=== PATIENT | female | born 1940 | race Caucasian/White ===

== ENCOUNTER 2016-05-14 10:45 | Day surgery (SDC) | payer MEDICARE, OTHER ==
[~2016-05-14 10:45] MED LIST: Cefuroxime 10 MG/ML SYRINGE EYERT SCH; Pilocarpine 4% Ophth Soln 15 ML Bot EYERT SCH; Proparacaine 0.5% Ophth Soln 15 ML Bottle EYEBOTH SCH; Tetracaine 0.5% 2 ML Bottle EYERT SCH
[2016-05-14] MEDS: Polymyxin B/Trimethoprim 10 ML Bottle EYERT SCH ×3 (12:30→14:12)
[2016-05-14] MEDS: Apraclonidine 0.5% Ophth Soln 5 ML Bot EYERT SCH ×3 (12:36→14:12)
[2016-05-14] MEDS: Phenylephrine 2.5% Ophth Soln 2 ML Bot EYERT SCH ×5 (12:40→13:55)
--- NOTE | 2016-05-14 13:06 | PCM.PREANE ---
Preanesthetic Assessment - Anesthesia/Transfusion/Family Hx Anesthesia History: Prior Anesthesia Without Reaction Family History of Anesthesia Reaction: Yes Transfusion History: Prior Transfusion Without Reaction - Review of Systems General: No Symptoms Pulmonary: No Symptoms Cardiovascular: No Symptoms Gastrointestinal: No symptoms Neurological: No Symptoms Other: Reports: None - Physical Assessment NPO Status Date: 05/13/16 NPO Status Time: 17:00 O2 Sat by Pulse Oximetry: 98 Respiratory Rate: 16 Vital Signs: Last Vital Signs Temp 36.3 C 05/14/16 12:20 Pulse 68 05/14/16 12:20 Resp 16 05/14/16 12:20 BP 176/78 H 05/14/16 12:20 Pulse Ox 98 05/14/16 12:20 Height: 1.68 m Weight: 72.575 kg ASA Class: 2 Mental Status: Alert & Oriented x3 Dentition: Reports: [place](s) (permanent ) Thyro-Mental Finger Breadths: 3 Mouth Opening Finger Breadths: 5 ROM/Head Extension: Full Lungs: Clear to auscultation, Normal respiratory effort Cardiovascular: Regular Rate, Regular Rhythm - Allergies Allergies/Adverse Reactions: Allergies Allergy/AdvReac Type Severity Reaction Status Date / Time No Known Allergies Allergy Verified 05/13/16 07:12 - Anesthesia Plan Pre-Op Medication Ordered: None - Acknowledgements Anesthesia Type Planned: MAC Pt an Appropriate Candidate for the Planned Anesthesia: Yes Alternatives and Risks of Anesthesia Discussed w Pt/Guardian: Yes Pt/Guardian Understands and Agrees with Anesthesia Plan: Yes PreAnesthesia Questionnaire - Past Health History Medical/Surgical History: Denies Medical/Surgical History Cardiovascular History: Reports: None Respiratory History: Reports: None Endocrine/Metabolic History: Reports: None - Infectious Disease History Infectious Disease History: Reports: None - SUBSTANCE USE Smoking Status *Q: Current Every Day Smoker - HOME MEDS Home Medications: Home Meds Pravastatin [Pravachol] 40 mg PO DAILY 05/13/16 [History] - CURRENT (IN HOUSE) MEDS Current Meds: Current Medications Apraclonidine HCl (Iopidine 0.5% Ophth Soln) 0 ml EYERT ASDIRECTED CARLA Stop: 05/14/16 18:00 Last Admin: 05/14/16 12:36 Dose: 1 drop Cefuroxime Sodium (Zinacef) 0 mg EYERT ASDIRECTED CARLA Stop: 05/14/16 18:00 Phenylephrine HCl (Bony-Synephrine 2.5% Ophth Soln) 0 ml EYERT ASDIRECTED CARLA Stop: 05/14/16 18:00 Last Admin: 05/14/16 12:50 Dose: 1 drop Pilocarpine HCl (Pilocar 4% Ophth Soln) 0 ml EYERT ASDIRECTED CARLA Stop: 05/14/16 18:00 Polymyxin/Trimethoprim Sulfate (Polytrim Ophth Soln) 0 ml EYERT ASDIRECTED CARLA Stop: 05/14/16 18:00 Last Admin: 05/14/16 12:30 Dose: 1 drop Proparacaine HCl (Proparacaine 0.5% Ophth Soln) 0 ml EYEBOTH ASDIRECTED CARLA Stop: 05/14/16 18:00 Tetracaine (Pontocaine 0.5% Ophth Drops) 0 ml EYERT ASDIRECTED CARLA Stop: 05/14/16 18:00 Tropicamide (Mydriacyl 1% Ophth Soln) 0 ml EYERT ASDIRECTED CARLA Stop: 05/14/16 18:00 Last Admin: 05/14/16 12:55 Dose: 1 drop Preanesthetic Assessment - PHYSICAL ASSESSMENT O2 Sat by Pulse Oximetry: 98 RR: 16 Vital Signs: Last Vital Signs Temp 36.3 C 05/14/16 12:20 Pulse 68 05/14/16 12:20 Resp 16 05/14/16 12:20 BP 176/78 H 05/14/16 12:20 Pulse Ox 98 05/14/16 12:20 Height: 1.68 m Weight: 72.575 kg NPO Status Date: 05/13/16 NPO Status Time: 17:00 - ALLERGIES Allergies/Adverse Reactions: Allergies Allergy/AdvReac Type Severity Reaction Status Date / Time No Known Allergies Allergy Verified 05/13/16 07:12
--- NOTE | 2016-05-14 14:14 | PCM48HPAN ---
Post Anesthesia Note - EVALUATION WITHIN 48HRS OF ANESTHETIC Vital Signs in Normal Range: Yes Patient Participated in Evaluation: Yes Respiratory Function Stable: Yes Airway Patent: Yes Cardiovascular Function Stable: Yes Hydration Status Stable: Yes Pain Control Satisfactory: Yes Nausea and Vomiting Control Satisfactory: Yes Mental Status Recovered: Yes
[2016-05-14] MEDS ORDERED: Lidocaine 1% PF 2 ML SDV INJECT SCH (14:45)
[2016-05-14 14:50] VITALS: BP 168/85
== END 2016-05-14 14:30 | disposition home or self-care (01) ==
LOC: JD.SDS 10:45
PROVIDERS: ATTEND Ophthalmology
DX: H26.9 Unspecified cataract (principal); E78.00 Pure hypercholesterolemia, unspecified; Z90.710 Acquired absence of both cervix and uterus; Z98.890 Other specified postprocedural states
CPT/HCPCS: 66984; A9270; C1780; J0697

== ENCOUNTER 2016-06-11 09:16 | Day surgery (SDC) | payer MEDICARE, OTHER ==
[2016-06-11] MEDS: Polymyxin B/Trimethoprim 10 ML Bottle EYELF SCH ×4 (10:33→12:03)
[2016-06-11] MEDS: Brimonidine 0.2% Ophth Soln 5 ML Bottle EYELF SCH ×4 (10:39→12:03)
[2016-06-11] MEDS: Phenylephrine 2.5% Ophth Soln 2 ML Bot EYELF SCH ×6 (10:43→11:47)
--- NOTE | 2016-06-11 11:04 | PCM.PREANE ---
Preanesthetic Assessment - Anesthesia/Transfusion/Family Hx Anesthesia History: Prior Anesthesia Without Reaction Family History of Anesthesia Reaction: No Transfusion History: Prior Transfusion Without Reaction - Review of Systems General: No Symptoms Pulmonary: No Symptoms Cardiovascular: No Symptoms Gastrointestinal: No symptoms Neurological: No Symptoms Other: Reports: None - Physical Assessment NPO Status Date: 06/10/16 NPO Status Time: 17:30 O2 Sat by Pulse Oximetry: 98 Respiratory Rate: 16 Vital Signs: Last Vital Signs Temp 36.4 C 06/11/16 10:20 Pulse 91 06/11/16 10:20 Resp 16 06/11/16 10:20 BP 182/98 H 06/11/16 10:20 Pulse Ox 98 06/11/16 10:20 Height: 1.68 m Weight: 72.575 kg ASA Class: 2 Mental Status: Alert & Oriented x3 Airway Class: Mallampati = 1 Dentition: Reports: Normal Dentition Thyro-Mental Finger Breadths: 3 Mouth Opening Finger Breadths: 3 ROM/Head Extension: Full Lungs: Clear to auscultation, Normal respiratory effort Cardiovascular: Regular Rate, Regular Rhythm - Allergies Allergies/Adverse Reactions: Allergies Allergy/AdvReac Type Severity Reaction Status Date / Time Influenza Virus Vaccines Allergy Itching Verified 06/10/16 13:30 - Acknowledgements Anesthesia Type Planned: MAC Pt an Appropriate Candidate for the Planned Anesthesia: Yes Alternatives and Risks of Anesthesia Discussed w Pt/Guardian: Yes Pt/Guardian Understands and Agrees with Anesthesia Plan: Yes PreAnesthesia Questionnaire - Past Health History Medical/Surgical History: Denies Medical/Surgical History HEENT History: Reports: None Cardiovascular History: Reports: None, High cholesterol Respiratory History: Reports: None Gastrointestinal History: Reports: None, GERD Genitourinary History: Reports: None Musculoskeletal History: Reports: None Neurological History: Reports: None Psychiatric History: Reports: None Endocrine/Metabolic History: Reports: None Hematologic History: Reports: None Immunologic History: Reports: None Oncologic (Cancer) History: Reports: None Dermatologic History: Reports: None - Infectious Disease History Infectious Disease History: Reports: None - Past Surgical History Head Surgeries/Procedures: Reports: None HEENT Surgical History: Reports: Cataract surgery Cardiovascular Surgical History: Reports: None Respiratory Surgical History: Reports: None GI Surgical History: Reports: Colonoscopy Female Surgical History: Reports: Hysterectomy Male Surgical History: Reports: None Endocrine Surgical History: Reports: None Neurological Surgical History: Reports: None Musculoskeletal Surgical History: Reports: None Oncologic Surgical History: Reports: None Dermatological Surgical History: Reports: None (no anesthetic complications) - SUBSTANCE USE Smoking Status *Q: Never Smoker - HOME MEDS Home Medications: Home Meds Pravastatin [Pravachol] 40 mg PO DAILY 05/13/16 [History] Multivitamin [Daily [place]] 1 tab PO DAILY 06/10/16 [History] Vitamin E 400 mg PO DAILY 06/10/16 [History] - CURRENT (IN HOUSE) MEDS Current Meds: Current Medications Brimonidine Tartrate (Alphagan 0.2% Ophth Soln) 0 ml EYELF ASDIRECTED CARLA Stop: 06/11/16 18:00 Last Admin: 06/11/16 10:39 Dose: 1 drop Cefuroxime Sodium (Zinacef) 0 mg EYELF ASDIRECTED CARLA Stop: 06/11/16 18:00 Lidocaine HCl (Xylocaine-Mpf 1%) 1 ml INJECT ASDIRECTED CARLA Stop: 06/11/16 18:00 Phenylephrine HCl (Bony-Synephrine 2.5% Ophth Soln) 0 ml EYELF ASDIRECTED CARLA Stop: 06/11/16 18:00 Last Admin: 06/11/16 10:50 Dose: 1 drop Pilocarpine HCl (Pilocar 4% Ophth Soln) 0 ml EYELF ASDIRECTED CARLA Stop: 06/11/16 18:00 Polymyxin/Trimethoprim Sulfate (Polytrim Ophth Soln) 0 ml EYELF ASDIRECTED CARLA Stop: 06/11/16 18:00 Last Admin: 06/11/16 10:33 Dose: 1 drop Proparacaine HCl (Proparacaine 0.5% Ophth Soln) 0 ml EYEBOTH ASDIRECTED CARLA Stop: 06/11/16 18:00 Tetracaine (Pontocaine 0.5% Ophth Drops) 0 ml EYELF ASDIRECTED CARLA Stop: 06/11/16 18:00 Tropicamide (Mydriacyl 1% Ophth Soln) 0 ml EYELF ASDIRECTED CARLA Stop: 06/11/16 18:00 Last Admin: 06/11/16 10:55 Dose: 1 drop
[2016-06-11] MEDS: Lidocaine 1% PF 2 ML SDV INJECT SCH ×2 (11:29→11:53)
[2016-06-11] MEDS: Tetracaine 0.5% 2 ML Bottle EYELF SCH ×2 (11:29→11:53)
[2016-06-11] MEDS: Cefuroxime 10 MG/ML SYRINGE EYELF SCH ×2 (11:29→12:01)
[2016-06-11] MEDS: Pilocarpine 4% Ophth Soln 15 ML Bot EYELF SCH ×2 (11:30→12:03)
[2016-06-11] MEDS: Proparacaine 0.5% Ophth Soln 15 ML Bottle EYEBOTH SCH ×3 (11:31→11:44)
[2016-06-11 12:27] VITALS: BP 156/80
== END 2016-06-11 12:13 | disposition home or self-care (01) ==
LOC: JD.SDS 09:16
PROVIDERS: ATTEND Ophthalmology
DX: H26.9 Unspecified cataract (principal); E78.00 Pure hypercholesterolemia, unspecified; Z90.710 Acquired absence of both cervix and uterus; Z98.890 Other specified postprocedural states; Z88.8 Allergy status to other drugs, medicaments and biological substances; Z79.899 Other long term (current) drug therapy
CPT/HCPCS: 66984; A9270; C1780; J0697

== ENCOUNTER 2019-04-26 10:15 | Emergency (ER) | payer MEDICARE, OTHER ==
--- NOTE | 2019-04-26 10:51 | EDM.PDOC ---
ED HPI GENERAL MEDICAL PROBLEM - General Chief Complaint: Chest Pain Stated Complaint: CHEST PAIN/STERNUM Time Seen by Provider: 04/26/19 10:51 - History of Present Illness INITIAL COMMENTS - FREE TEXT/NARRATIVE: 78-year-old female presents the emergency room with a history of chest pain. The patient's had been having on and off substernal and left-sided chest pain for the last 5 to 6 weeks. Some episodes been quite severe however she thought it was indigestion. She was trying to schedule appointment with her primary provider and told them what was going on and they referred her to here. The patient has not had chest pain in 2 days and that last episode was fairly mild as the chest pain goes she has a chest pain 2-3 occasionally 4 times a week. She does not take anything for it except for some intermittent Tylenol. These episodes last for 5 to 15 minutes. She considered it indigestion. On 1 of the more severe episodes and she is not sure the date of this she attempted to come to the hospital to get evaluated however the roads were so bad they turned around and went home. She is got a significant history of hypertension and hyperlipidemia. Family history is positive father in his 50s from [facility] the patient has never been a smoker. Middle Chest Pain Score (Numeric/FACES): 0 - Related Data Allergies Allergy/AdvReac Type Severity Reaction Status Date / Time Influenza Virus Vaccines Allergy Itching Verified 04/26/19 10:27 Home Meds: Home Meds Pravastatin [Pravachol] 40 mg PO DAILY 05/13/16 [History] Multivitamin [Daily [place]] 1 tab PO DAILY 06/10/16 [History] Vitamin E 400 mg PO DAILY 06/10/16 [History] Levothyroxine 25 mcg PO ACBREAKFAST 04/26/19 [History] Metoprolol Succinate [Toprol XL] 25 mg PO DAILY 04/26/19 [History] Past Medical History - Past Health History Medical/Surgical History: Denies Medical/Surgical History HEENT History: Reports: None Cardiovascular History: Reports: High Cholesterol, Hypertension Respiratory History: Reports: None Gastrointestinal History: Reports: None, GERD Genitourinary History: Reports: None Musculoskeletal History: Reports: None Neurological History: Reports: None Psychiatric History: Reports: None Endocrine/Metabolic History: Reports: None Hematologic History: Reports: None Immunologic History: Reports: None Oncologic (Cancer) History: Reports: None Dermatologic History: Reports: None - Infectious Disease History Infectious Disease History: Reports: None - Past Surgical History Head Surgeries/Procedures: Reports: None HEENT Surgical History: Reports: Cataract Surgery Respiratory Surgical History: Reports: None GI Surgical History: Reports: Colonoscopy Female Surgical History: Reports: Hysterectomy Endocrine Surgical History: Reports: None Neurological Surgical History: Reports: None Musculoskeletal Surgical History: Reports: None Oncologic Surgical History: Reports: None Dermatological Surgical History: Reports: None Social & Family History - Tobacco Use Smoking Status *Q: Never Smoker - Recreational Drug Use Recreational Drug Use: No ED ROS GENERAL - Review of Systems Review Of Systems: See Below Constitutional: Reports: No Symptoms HEENT: Reports: No Symptoms Respiratory: Reports: No Symptoms Cardiovascular: Reports: Chest Pain, Blood Pressure Problem. Denies: No Symptoms, Claudication, Lightheadedness, Palpitations Endocrine: Reports: No Symptoms GI/Abdominal: Reports: No Symptoms : Reports: No Symptoms Musculoskeletal: Reports: No Symptoms Skin: Reports: No Symptoms Neurological: Reports: No Symptoms ED EXAM, GENERAL - Physical Exam Exam: See Below Exam Limited By: No Limitations General Appearance: Alert, No Apparent Distress Head: Atraumatic, Normocephalic Neck: Normal Inspection, Supple, Non-Tender, Full Range of Motion, Other (No JVD ). No: Lymphadenopathy (L), Lymphadenopathy (R) Respiratory/Chest: No Respiratory Distress, Lungs Clear, Normal Breath Sounds Cardiovascular: Regular Rate, Rhythm, No Edema, No Murmur GI/Abdominal: Normal Bowel Sounds, Soft, Non-Tender Back Exam: Normal Inspection. No: CVA Tenderness (L), CVA Tenderness (R) Extremities: Normal Inspection, No Pedal Edema Neurological: Alert, Oriented, Normal Cognition Skin Exam: Warm, Dry, Intact EKG INTERPRETATION EKG Date: 04/26/19 Rhythm: NSR [place]: Normal P-Wave: Present QRS: Normal ST-T: Other (Specific nondiagnostic changes inferior and lateral leads mild ST depression in the setting of no active chest pain.) QT: Normal Comparison: NA - No Prior EKG Course - Vital Signs Last Recorded V/S: Last Vital Signs Temp 36.9 C 04/26/19 10:23 Pulse 62 04/26/19 13:56 Resp 16 04/26/19 10:23 BP 174/68 H 04/26/19 13:59 Pulse Ox 96 04/26/19 10:23 - Orders/Labs/Meds Orders: Active Orders 24 hr Category Date Time Status EKG Documentation Completion [RC] ASDIRECTED Care 04/26/19 10:19 Active EKG 12 Lead [EK] Stat Ther 04/26/19 10:19 Ordered Labs: Laboratory Tests 04/26/19 04/26/19 04/26/19 Range/Units 11:00 11:00 11:00 WBC 5.57 (3.98-10.04) K/mm3 RBC 5.29 H (3.98-5.22) M/mm3 Hgb 15.2 (11.2-15.7) gm/dl Hct 46.9 H (34.1-44.9) % MCV 88.7 (79.4-94.8) fl MCH 28.7 (25.6-32.2) pg MCHC 32.4 (32.2-35.5) g/dl RDW Std Deviation 48.8 H (36.4-46.3) fL Plt Count 193 (182-369) K/mm3 MPV 9.6 (9.4-12.3) fl Neut % (Auto) 52.7 (34.0-71.1) % Lymph % (Auto) 32.9 (19.3-51.7) % [place] % (Auto) 11.3 (4.7-12.5) % Eos % (Auto) 2.7 (0.7-5.8) Baso % (Auto) 0.4 (0.1-1.2) % Neut # (Auto) 2.94 (1.56-6.13) K/mm3 Lymph # (Auto) 1.83 (1.18-3.74) K/mm3 [place] # (Auto) 0.63 H (0.24-0.36) K/mm3 Eos # (Auto) 0.15 (0.04-0.36) K/mm3 Baso # (Auto) 0.02 (0.01-0.08) K/mm3 Sodium 143 (136-145) mEq/L Potassium 4.1 (3.5-5.1) mEq/L Chloride 108 H (98-107) mEq/L Carbon Dioxide 27 (21-32) mEq/L Anion Gap 12.1 (5-15) BUN 18 (7-18) mg/dL Creatinine 0.9 (0.55-1.02) mg/dL Est Cr Clr Drug Dosing 49.00 mL/min Estimated GFR (MDRD) > 60 (>60) mL/min BUN/Creatinine Ratio 20.0 H (14-18) Glucose 98 (83-115) mg/dL Calcium 9.3 (8.5-10.1) mg/dL Total Bilirubin 0.6 (0.2-1.0) mg/dL AST 15 (15-37) U/L ALT 24 (14-59) U/L Alkaline Phosphatase 80 (46-116) U/L Troponin I (0.00-0.056) ng/mL NT-Pro-B Natriuret Pep 442 (0-450) pg/mL Total Protein 7.0 (6.4-8.2) g/dl Albumin 3.6 (3.4-5.0) g/dl Globulin 3.4 gm/dL Albumin/Globulin Ratio 1.1 (1-2) Lipase (73-393) U/L 04/26/19 Range/Units 11:00 WBC (3.98-10.04) K/mm3 RBC (3.98-5.22) M/mm3 Hgb (11.2-15.7) gm/dl Hct (34.1-44.9) % MCV (79.4-94.8) fl MCH (25.6-32.2) pg MCHC (32.2-35.5) g/dl RDW Std Deviation (36.4-46.3) fL Plt Count (182-369) K/mm3 MPV (9.4-12.3) fl Neut % (Auto) (34.0-71.1) % Lymph % (Auto) (19.3-51.7) % [place] % (Auto) (4.7-12.5) % Eos % (Auto) (0.7-5.8) Baso % (Auto) (0.1-1.2) % Neut # (Auto) (1.56-6.13) K/mm3 Lymph # (Auto) (1.18-3.74) K/mm3 [place] # (Auto) (0.24-0.36) K/mm3 Eos # (Auto) (0.04-0.36) K/mm3 Baso # (Auto) (0.01-0.08) K/mm3 Sodium (136-145) mEq/L Potassium (3.5-5.1) mEq/L Chloride (98-107) mEq/L Carbon Dioxide (21-32) mEq/L Anion Gap (5-15) BUN (7-18) mg/dL Creatinine (0.55-1.02) mg/dL Est Cr Clr Drug Dosing mL/min Estimated GFR (MDRD) (>60) mL/min BUN/Creatinine Ratio (14-18) Glucose (83-115) mg/dL Calcium (8.5-10.1) mg/dL Total Bilirubin (0.2-1.0) mg/dL AST (15-37) U/L ALT (14-59) U/L Alkaline Phosphatase (46-116) U/L Troponin I 0.144 H* (0.00-0.056) ng/mL NT-Pro-B Natriuret Pep (0-450) pg/mL Total Protein (6.4-8.2) g/dl Albumin (3.4-5.0) g/dl Globulin gm/dL Albumin/Globulin Ratio (1-2) Lipase 160 (73-393) U/L Meds: Medications Discontinued Medications Generic Name Dose Route Start Last Admin Trade Name Freq PRN Reason Stop Dose Admin Aspirin 324 mg 04/26/19 13:33 04/26/19 13:56 Aspirin PO 04/26/19 13:34 324 mg ONETIME ONE Administration Carvedilol 3.125 mg 04/26/19 13:31 04/26/19 13:56 Coreg PO 04/26/19 13:32 3.125 mg ONETIME ONE Administration Heparin Sodium (Porcine) 60 units 04/26/19 13:33 04/26/19 13:58 Heparin Sodium IVPUSH 04/26/19 13:34 60 units .BOLUS ONE Administration Heparin Sodium/Dextrose 25,000 units in 500 mls @ 17.962 mls/hr 04/26/19 13: 45 04/26/19 13:57 Heparin 25,000 Units In D5w 500 Ml IV 12 units/kg/hr TITRATE CARLA 17.962 mls/hr Administration Protocol 12 UNITS/KG/HR Lisinopril 5 mg 04/26/19 13:31 04/26/19 13:59 Prinivil PO 04/26/19 13:32 5 mg ONETIME ONE Administration - Re-Assessments/Exams Free Text/Narrative Re-Assessment/Exam: 04/26/19 14:02 Labs are concerning for a troponin is elevated at 0.144. Chest x-ray unremarkable EKG shows some nonspecific nondiagnostic changes. Discussed the situation with , live truck technician supervisor contingents at [facility] in [place] who recommended sending the patient over. She also recommended starting the patient on Lipitor 80 mg lisinopril 5 mg Coreg 3.125 mg aspirin 325. Patient also has been started on heparin this is been done other than the Lipitor we do not have on her formulary. Dr. Alvares, hospitalist at [facility] in [place] is kind enough to accept the patient. Patient's troponin was checked at 11 AM [place] time or noon [place] time Departure - Departure Time of Disposition: 14:05 Disposition: DC/Tfer to [facility] 02 Reason for Transfer *Q: Other Clinical Impression: History of chest pain, Elevated troponin Referrals: Trice Guzmán NP [Primary Care Provider] - Forms: ED Department Discharge Sepsis Event Note - Evaluation Sepsis Screening Result: No Definite Risk - Focused Exam Vital Signs: Vital Signs Temp Pulse Pulse Resp BP BP Pulse Ox 04/26/19 13:59 174/68 H 04/26/19 13:56 62 174/68 H 04/26/19 10:23 36.9 C 66 16 182/91 H 96 Date Exam was Performed: 04/26/19 Time Exam was Performed: 18:17 - My Orders Last 24 Hours: My Active Orders 04/26/19 10:19 EKG Documentation Completion [RC] ASDIRECTED EKG 12 Lead [EK] Stat - Assessment/Plan Last 24 Hours: My Active Orders 04/26/19 10:19 EKG Documentation Completion [RC] ASDIRECTED EKG 12 Lead [EK] Stat
--- NOTE | 2019-04-26 11:33 | CR ---
Portable chest: Frontal view of the chest was obtained. Comparison: No prior chest imaging. Heart size and mediastinum are normal. Lungs are clear with no acute parenchymal change. Bony structures are unremarkable. Impression: 1. Nothing acute is seen on portable chest x-ray. Diagnostic code #1 This report was dictated in [place] Standard Time
[2019-04-26] MEDS ORDERED: Carvedilol 3.125 MG Tab PO ONE (13:31)
[2019-04-26] MEDS ORDERED: Lisinopril 5 MG Tab PO ONE (13:31)
[2019-04-26] MEDS ORDERED: Heparin Sodium 5,000 Units/ML Vial IVPUSH ONE (13:33)
[2019-04-26] MEDS ORDERED: Aspirin 81 MG Tab.Chew PO ONE (13:33)
[2019-04-26] MEDS ORDERED: Heparin Sodium/D5W 25,000 UNITS/500 ML BAG IV SCH (13:45)
[2019-04-26 13:59] VITALS: BP 174/68; PULSE 62
== END 2019-04-26 14:40 ==
LOC: JD.ED 10:15
DX: R79.89 Other specified abnormal findings of blood chemistry (principal); I10 Essential (primary) hypertension; E78.00 Pure hypercholesterolemia, unspecified; Z88.7 Allergy status to serum and vaccine; Z79.899 Other long term (current) drug therapy
CPT/HCPCS: 36415; 71045; 80053; 83690; 83880; 84484; 85025; 93005; 96365; 99285; A9270; J1644; 93010

== ENCOUNTER 2024-01-11 08:40 | Emergency (ER) | payer MEDICARE, OTHER ==
[2024-01-11 09:03] LABS: BASOPHILS PERCENT AUTO 0.5 % (0.0-1.0); EOSINOPHILS ABSOLUTE AUTO 0.2 K/mm3 (0.0-0.4); EOSINOPHILS PERCENT AUTO 2.4 % (0.0-6.0); HEMATOCRIT 46.5 % (37.0-47.0); HEMOGLOBIN 15.2 gm/dl (12.0-16.0); IMMATURE GRAN ABSOLUTE AUTO 0.02 K/mm3 (0.00-0.05); IMMATURE GRAN PERCENT AUTO 0.2 % (0.0-0.4); LYMPHOCYTES ABSOLUTE AUTO 1.9 K/mm3 (1.0-4.8); LYMPHOCYTES PERCENT AUTO 23.1 % (24.0-44.0); MEAN CORPUSCULAR HGB CONC 32.7 g/dl (32.0-36.0); MEAN CORPUSCULAR VOLUME 88.6 fl (83.0-99.0); MEAN PLATELET VOLUME 9.7 fl (9.4-12.3); MONOCYTES ABSOLUTE AUTO 0.6 K/mm3 (0.0-0.8); MONOCYTES PERCENT AUTO 7.4 % (0.0-8.0); NEUTROPHILS ABSOLUTE AUTO 5.4 K/mm3 (1.8-7.7); NEUTROPHILS PERCENT AUTO 66.4 % (41.0-71.0); PLATELET COUNT,PLT 163 K/mm3 (150-400); RED BLOOD CELL COUNT 5.25 M/mm3 (4.10-5.30); WHITE BLOOD CELL COUNT,WBC 8.19 K/mm3 (3.9-11.3)
[2024-01-11] MEDS: Sodium Chloride 0.9% 10 ML Syringe FLUSH PRN (09:09)
[2024-01-11] MEDS: Aspirin 81 MG Tab.Chew PO ONE (09:09)
[2024-01-11 09:53] LABS: A/G RATIO 1.1 (1-2); ALBUMIN 3.7 g/dl (3.4-5.0); BILIRUBIN TOTAL 0.6 mg/dL (0.2-1.0); BUN/CREATININE RATIO 16.4 (14-18); CALCIUM 9.4 mg/dL (8.5-10.1); CREATININE 1.1 mg/dL (0.55-1.02); EST CRCL DRUG DOSING (CG) 36.91 mL/min; MAGNESIUM 1.8 mg/dL (1.8-2.4); PROTEIN TOTAL,TP 7.1 g/dl (6.4-8.2)
[2024-01-11] MEDS: Diltiazem 25 MG/5 ML SDV IVPUSH ONE (11:10)
[2024-01-11 13:57] VITALS: BP 168/65; PULSE 54
== END 2024-01-11 13:30 | disposition left against medical advice (07) ==
LOC: JD.ED 08:40
DX: I48.91 Unspecified atrial fibrillation (principal); E78.00 Pure hypercholesterolemia, unspecified; I10 Essential (primary) hypertension; K21.9 Gastro-esophageal reflux disease without esophagitis; Z90.710 Acquired absence of both cervix and uterus; Z79.82 Long term (current) use of aspirin; Z79.899 Other long term (current) drug therapy; Z88.7 Allergy status to serum and vaccine
CPT/HCPCS: 36415; 71045; 80053; 83735; 84484; 85025; 93005; 99285; A9270; J3490

== ENCOUNTER 2024-02-02 09:03 | Inpatient (IN) | payer MEDICARE, OTHER ==
[2024-02-02 09:36] LABS: BASOPHILS PERCENT AUTO 0.4 % (0.0-1.0); EOSINOPHILS ABSOLUTE AUTO 0.1 K/mm3 (0.0-0.4); EOSINOPHILS PERCENT AUTO 1.1 % (0.0-6.0); HEMATOCRIT 46.1 % (37.0-47.0); IMMATURE GRAN ABSOLUTE AUTO 0.02 K/mm3 (0.00-0.05); IMMATURE GRAN PERCENT AUTO 0.3 % (0.0-0.4); LYMPHOCYTES ABSOLUTE AUTO 1.8 K/mm3 (1.0-4.8); LYMPHOCYTES PERCENT AUTO 23.4 % (24.0-44.0); MEAN CORPUSCULAR HEMOGLOBIN 29.1 pg (28.0-32.0); MEAN CORPUSCULAR HGB CONC 32.5 g/dl (32.0-36.0); MEAN CORPUSCULAR VOLUME 89.5 fl (83.0-99.0); MEAN PLATELET VOLUME 9.2 fl (9.4-12.3); MONOCYTES ABSOLUTE AUTO 0.5 K/mm3 (0.0-0.8); MONOCYTES PERCENT AUTO 6.7 % (0.0-8.0); NEUTROPHILS ABSOLUTE AUTO 5.1 K/mm3 (1.8-7.7); NEUTROPHILS PERCENT AUTO 68.1 % (41.0-71.0); PLATELET COUNT,PLT 159 K/mm3 (150-400); RED BLOOD CELL COUNT 5.15 M/mm3 (4.10-5.30); WHITE BLOOD CELL COUNT,WBC 7.49 K/mm3 (3.9-11.3)
[2024-02-02 09:54] LABS: INR 1.18; PROTHROMBIN TIME 12.4 SECONDS (9.7-12.0)
[2024-02-02 09:58] LABS: A/G RATIO 1.1 (1-2); ALBUMIN 3.5 g/dl (3.4-5.0); ANION GAP 12.9 (5-15); BUN/CREATININE RATIO 10.8 (14-18); CALCIUM 9.2 mg/dL (8.5-10.1); CREATININE 1.2 mg/dL (0.55-1.02); EST CRCL DRUG DOSING (CG) 33.84 mL/min; POTASSIUM,K 3.9 mEq/L (3.5-5.1); PROTEIN TOTAL,TP 6.7 g/dl (6.4-8.2)
[2024-02-02] MEDS: Sodium Chloride 0.9% 10 ML Syringe FLUSH PRN ×2 (14:16→14:17)
[2024-02-02] MEDS: Aspirin 81 MG Tab.Chew PO ONE (14:16)
[2024-02-02] MEDS ORDERED: Acetaminophen 325 MG Tab PO PRN (16:31)
[2024-02-02 17:07] LABS: TSH 1.886 uIU/mL (0.358-3.74)
[2024-02-02] MEDS: Apixaban 5 MG Tab PO SCH (21:39)
[2024-02-02] MEDS: Carvedilol 6.25 MG Tab PO SCH (21:39)
[2024-02-02] MEDS: Rosuvastatin 10 MG Tab PO SCH (21:48)
[2024-02-03] MEDS: Losartan 25 MG Tab PO SCH (01:52)
[2024-02-03 04:47] LABS: HEMATOCRIT 42.2 % (37.0-47.0); HEMOGLOBIN 13.6 gm/dl (12.0-16.0); MEAN CORPUSCULAR HEMOGLOBIN 28.6 pg (28.0-32.0); MEAN CORPUSCULAR HGB CONC 32.2 g/dl (32.0-36.0); MEAN CORPUSCULAR VOLUME 88.8 fl (83.0-99.0); MEAN PLATELET VOLUME 9.1 fl (9.4-12.3); PLATELET COUNT,PLT 146 K/mm3 (150-400); RED BLOOD CELL COUNT 4.75 M/mm3 (4.10-5.30); WHITE BLOOD CELL COUNT,WBC 5.73 K/mm3 (3.9-11.3)
[2024-02-03 05:07] LABS: ANION GAP 11.6 (5-15); BUN/CREATININE RATIO 13.6 (14-18); CALCIUM 9.1 mg/dL (8.5-10.1); CREATININE 1.1 mg/dL (0.55-1.02); EST CRCL DRUG DOSING (CG) 36.91 mL/min; POTASSIUM,K 3.6 mEq/L (3.5-5.1)
[2024-02-03] MEDS: Levothyroxine 50 MCG Tab PO SCH (06:18)
[2024-02-03] MEDS: Losartan 100 MG Tab PO SCH (08:21)
[2024-02-03] MEDS: Aspirin 81 MG Tab.EC PO SCH (08:22)
[2024-02-03] MEDS ORDERED: Rosuvastatin 10 MG Tab PO SCH (09:00)
[2024-02-03] MEDS: Hydrochlorothiazide 12.5 MG Cap PO SCH (10:13)
[2024-02-03 10:21] LABS: CHOLESTEROL HDL 51 mg/dL (40-59); CHOLESTEROL LDL DIRECT 39 mg/dL (<100); CHOLESTEROL TOTAL 97 mg/dL (<200); TRIGLYCERIDES 76 mg/dL (<150)
[2024-02-03 14:07] VITALS: BP 165/62; PULSE 58
[2024-02-03] MEDS: Hydrochlorothiazide 12.5 MG Cap PO ONE (14:20)
== END 2024-02-03 14:33 | disposition home or self-care (01) | DRG 281 ==
LOC: JD.ED 09:03 → JD.MS 16:31 → OBSVTOIN 16:51 → JD.MS 17:18
PROVIDERS: ADMIT Family Medicine; ATTEND Family Medicine
DX: I21.4 Non-ST elevation (NSTEMI) myocardial infarction (principal); I16.1 Hypertensive emergency; I10 Essential (primary) hypertension; Z79.01 Long term (current) use of anticoagulants; E78.00 Pure hypercholesterolemia, unspecified; I48.0 Paroxysmal atrial fibrillation; E03.9 Hypothyroidism, unspecified; K21.9 Gastro-esophageal reflux disease without esophagitis; H26.9 Unspecified cataract; Z95.1 Presence of aortocoronary bypass graft; Z88.7 Allergy status to serum and vaccine; Z79.82 Long term (current) use of aspirin; Z79.02 Long term (current) use of antithrombotics/antiplatelets; Z79.899 Other long term (current) drug therapy; Z98.49 Cataract extraction status, unspecified eye; Z90.710 Acquired absence of both cervix and uterus
CPT/HCPCS: 36415; 71045; 80053; 83735; 84443; 84484 ×3; 85025; 85610; 93005; 94762; 99285; A9270; 80048; 80061; 85027; 93306